=== PATIENT | female | born 1950 ===

== ENCOUNTER 2024-05-19 05:16 | Day surgery (SDC) | payer OTHER ==
[2024-05-14 09:42] VITALS: BP 148/64
[2024-05-14 10:36] LABS: PH,URINE 5.5 (5.0-8.0); URINE APPEARANCE Clear; URINE BILIRRUBIN Negative (NEGATIVE); URINE BLOOD Negative; URINE COLOR Yellow; URINE GLUCOSE Negative (NEGATIVE); URINE KETONE Negative (NEGATIVE); URINE LEUKOCYTE Small; URINE NITRATE Negative; URINE PROTEIN Trace (NEGATIVE); URINE UROBILINOGEN 0.2 E.U./dl
[2024-05-14 10:39] LABS: HEMATOCRIT 42.3 % (36.0-45.00); HEMOGLOBIN 14.7 g/dL (12.0-15.00); MEAN CELL VOLUME 89.6 fL (80.00-100.00); MEAN CORPUSCULAR HEMOGLOBIN 31.1 pg (27.00-32.0); MEAN CORPUSCULAR HGB CONC 34.7 g/dl (32.0-36.0); PLATELET COUNT 234 K/uL (150-450); RED BLOOD COUNT 4.72 M/uL (4.00-6.00); RED CELL DISTRIBUTION WIDTH 13.7 % (11.5-14.5)
[2024-05-14 10:44] LABS: URINE BACTERIA 1551.9 uL (0.0-1933); URINE WBC 59.9 uL (0.0-23.2)
[2024-05-14 11:09] LABS: INR 0.94; PARTIAL THROMBOPLASTIN TIME 25.9 SECONDS (22.0-34.0); PROTHROMBIN TIME 10.3 SECONDS (9.0-11.5)
[2024-05-14 11:10] LABS: URINE CAST 0.29 uL (0.0-1.40); URINE RBC 0.7 uL (0.0-20.8)
[2024-05-14 11:15] LABS: ALBUMIN 3.8 gm/dL (3.4-5.0); BILIRUBIN TOTAL 0.59 mg/dL (0.3-1.2); CALCIUM 9.8 mg/dL (8.5-10.1); CREATININE SERUM 0.8 mg/dL (0.55-1.02); GFR 70.12; GLOBULINA 3.7 G/DL (2.4-3.5); POTASSIUM 4.19 mEq/L (3.5-5.1); TOTAL PROTEIN 7.5 gm/dL (6.4-8.2)
[~2024-05-19] VITALS: Ht 177.8 cm; Wt 75.7 kg
[~2024-05-19 05:16] MED LIST: GLUMETZA500 MG PO; NO RECUERDA
[2024-05-19] MEDS ORDERED: POVIDONE-IODINE 118 ML BOTT TOP ONE (07:05)
[2024-05-19] MEDS ORDERED: POVIDONE-IODINE SCRUB 118 ML BOTT TOP ONE (07:06)
[2024-05-19] MEDS ORDERED: CEFAZOLIN SODIUM 1,000 MG VIAL ONE (07:06)
[2024-05-19] MEDS ORDERED: LIDOCAINE HCL 1%/EPINEPHRINE 20ML VIAL IJ ONE (07:06)
[2024-05-19] MEDS ORDERED: EPINEPHRINE HCL/PF 1 MG/ML AMPUL ONE (07:14)
[2024-05-19] MEDS ORDERED: KETOROLAC TROMETHAMINE 60 MG VIAL IM PRN (10:15)
[2024-05-19] MEDS ORDERED: PROMETHAZINE HCL 25 MG/ML AMPUL IM PRN (10:15)
[2024-05-19] MEDS ORDERED: KETOROLAC TROMETHAMINE 60 MG VIAL IM ONE ×2 (10:40)
== END 2024-05-19 11:45 | disposition home or self-care (01) ==
LOC: CIR.AMB 05:16
PROVIDERS: ATTEND Otolaryngology Otology & Neurotology
DX: H90.12 Conductive hearing loss, unilateral, left ear, with unrestricted hearing on the contralateral side (principal); H80.02 Otosclerosis involving oval window, nonobliterative, left ear; Z03.818 Encounter for observation for suspected exposure to other biological agents ruled out; I10 Essential (primary) hypertension; E11.9 Type 2 diabetes mellitus without complications; H52.4 Presbyopia